=== PATIENT | male | born 1980 | race Caucasian/White ===

== ENCOUNTER 2023-02-07 14:02 | Emergency (ER) | payer OTHER, SELFPAY ==
[2023-02-07 14:16] VITALS: BP 124/79; PULSE 73; RESP 16; TEMP 36.8; O2SAT 99; BMI 29.4
--- NOTE | 2023-02-07 14:23 | PC.NURSE ---
bilat pupils equal and reactive, bilat hand grasp Strong and bilat leg strength strong and equal
[2023-02-07 14:55] VITALS: BP 143/87
--- NOTE | 2023-02-07 14:55 | ECG_ITS ---
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
[2023-02-07 14:57] VITALS: PULSE 64; RESP 14
[2023-02-07 14:58] VITALS: BP 148/82; PULSE 60; RESP 16
[2023-02-07 15:00] VITALS: BP 155/84
[2023-02-07 15:02] VITALS: BP 143/87; BP 148/87; BP 155/84
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
[2023-02-07] MEDS: METHYLPREDNISOLONE SOD SUCC PF 40 MG/ML VIAL IM (15:14)
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
== END 2023-02-07 16:36 | disposition home or self-care (01) ==
PROVIDERS: Emergency Provider Emergency Medicine; PCP Family Medicine
DX: R42 Dizziness and giddiness (principal)
CPT/HCPCS: 70450; 93005; 96372; 99285; J2920

== ENCOUNTER 2023-07-29 18:46 | Emergency (ER) | payer BC, SELFPAY ==
[2023-07-29 18:49] VITALS: BP 130/67; PULSE 75; TEMP 36.7; O2SAT 98; BMI 28.5
--- OUTSIDE RECORDS SUMMARY | 2023-07-29 18:55 | XMS_ITS | CCD ---
Author Organization [facility] Care Team Providers Care Automotive Engineer Name Role Phone Joy Buenrostro Unavailable SHASHI, DR NICOLE Acevedo Attending Unavailable SHASHI, DR NICOLE Acevedo Primary Care Unavailable DONR, DR NICOLE Acevedo Admitting Unavailable SHASHI, DR NICOLE Acevedo Admitting Unavailable SHASHI, DR NICOLE Acevedo Attending Unavailable SHASHI, DR NICOLE Acevedo Consulting Unavailable SHASHI, DR NICOLE Acevedo Primary Care Unavailable LEIGH ANDRES Consulting Unavailable VALENTÍN PARISI Attending Unavailable CATHI BENAVIDES Attending Unavailable SHASHI, NICOLE Acevedo Primary Care Unavailable Lawson PACRey Admitting Unavailable Lawson PACRey Attending Unavailable NICOLE DANIELLE Primary Care Unavailable DANDRE FARIAS Attending Unavailable Medications Current Medications Medication Drug Class(es) Dates Sig (Normalized) Sig (Original) [id number] 200 actuat albuterol 0.09 mg/actuat metered dose inhaler (2 sources) beta2-Adrenergic Agonist Start: 03-25-2021 take 2 puff(s) by inhalation four times daily as needed Albuterol Sulfate HFA 108 (90 Base) MCG/ACT 2 puffs Inhalation qid prn Mar, Active predniSONE 20 mg oral tablet (2 sources) Start: 03-25-2021 take 1 tablet by mouth every twelve hours predniSONE 20 MG 1 tablet Orally bid for 5 day(s) Mar, Active Problems Active Problems Problem Classification Problem Date Documented Da te Episodic/Chronic Conditions associated with dizziness or vertigo (4 sources) Dizziness and giddiness; Translations: [DIZZINESS AND GIDDINESS] Onset: 05-29-2022 Episodic Intracranial injury (1 source) Personal history of traumatic brain injury; Translations: [PERSONAL HX TRAUMATIC BRAIN INJURY] Onset: 06-01-2022 Episodic Past or Other Problems Problem Classification Problem Date Documented Da te Episodic/Chronic Immunizations and screening for infectious disease (2 sources) Contact with and (suspected) exposure to other viral communicable diseases Onset: 03-25-2021 Resolved: 03-25-2021 Episodic Viral infection (2 sources) COVID-19 Onset: 03-25-2021 Resolved: 03-25-2021 Results Test Name Value Interpretation Reference Range Facility Coding Summaryon 10-23-2022 Coding Summary HTMLBase 64 SeukniiyRIm4tCg+PGhlY WQ+FQ9DMYGxW51erIPvwC 5xE4OZVJyCXzheBSDGLCq DOfHbxuKrFC9pzVPiAFUg IC8+QT6rEMDlGxewpBWrv 3I7kIH2D36ssp8sLVuekY B5GPZmOjNdfxarr5ocyOt 6IDcuNmluOyBt SFVbjD75AXN1dF06Dk54o XTouKQaj4fiuCt5VyQdPL WjURS0uNboAMlcb6ZbXIX qI43hdHOtp5L7 KLJbrKgxgMJyCzVxdZA0i F9bREvuibrcf4jogdumKl t4nt36lLFgm3M4cHC7B7P pimO1MEPlzSRq RwjjwLLZqM9wwkxpu6tej nsxGzIaUGOhPCl0KLy1FZ IsnFtrHcOyHH25VHH0SUY rtyHvH9ByHMRe nQkvYdX2l3P0Dg9GV3BHY qyeK5MSJKXNGJeuuKJ+PC 46nn56Q3ToXehqStd2DSW eZJL0xCW5gP3z RGUzFPsgx3Y7pMD8H5Wsv cYzvw7sv7tgJGDwIMtvW4 3wrXNzc3C8PVLzrKQ6ZDR jrDbhMjJfsH28 Oyc+YDWwsPlss3TnUhmpn 6dhl2ahtSa2VirgQNGskg AueMgrHUO9x5XySf1vSOG tvPA4bGC9oZ5p QhLsMyR3ZTqbV957GlYak DOeMykjZ06dC9TpuNU+PH VnNgd1ZZExqVzsSW3vD6D hZGRpbmctbGVm eHtmSG7aCJPsbbytTDCqa X4aTTPxY9q7DeIaXbL9MZ dxJ1IdNTIbvayzVv90mN4 qJpCwSxB9VNxa J8CsjhB4ULHyzDGzZQjtE AL3V54mb4Y5XNMmGVDeMF T0wDR3vB7fhTzliwwowKR mdDsgdmVydGlj OFlqQCjiU980XDQcnNfpW kNvZGluZyBEYXRlOiAgMD cvMTcvMjAyMzwvdGQ+PHR aGBV6oSrhYKGv aXUnMBozWw3hkPthoXhgG U1aAKBdvuufVOKdlY7gZB AheMHncZqsRE0vJHThrkj qz203VdQqGMG1 LSTyyDKoQ9JpqS0eNbEeK QRbJQIsF3MkbIEnKGgdN3 59VBlqDfQ2TMEeerUaH7A sLWFsaWduOiB0 c9O3Ma5Ro2TqyfcsM9Gzy XAoQaDxYsfnZIl3T5QrIi wvdHI+YN02CZBiFN98HGk 2IOK5dDkgJEtl JKLhZ4YxwN2uZvWgEZLjE GRkOyc+PHRhYmxlIHdpZH RoPScxMDAlJyBzdHlsZT0 jFx7yXHIwDYGj nMhzsKFnHnTar6mvNLDqK VudLB9ghNyvE3BjyPW3KG Qxm5p9Mh82V07sD1SsoKJ +KCJpkEF7gJC5 kQ6wLiHnDpZ3YLdyC840A zFboYNmEowmb3uqd3pomI f3OfA5GAHzrqHznYbtVMP 9x8XkQw61N60c IHdpZHRoPSIxNSUiIHZhb Ksnrz5jnT1fDp6+PGNvbC J8hNH7pK8cArCvIeU7JLb zV397EeMacVDc Pseah0pcl7gfpBq0NkRnG UAkcqHetWslVWZ4t8UdWa 48F7LitXozp1ZmGxf8ql2 6nBAty7M4uQS6 S8GvEWNarhbapFZorGczX G1nPLAqyyilSIVfwZ8kJM ZnE5e7VaHdAyI0JLdhJ2P jjdK6LHZdmIUw RTKjiDSVyG8ywdhzi5tix dhsJmYlAFTpQZr0YOj3YY UqzWgbYiSiAOX4KzZ1HPN 3eTCvoK6zvDda puarmZ1lQbq+MRH6fBXvb FGFLV7lIbvylDM+PHRkIH O1wIbdJIfxJEUinB3oBHH sD8j3XlGqScE6 TPnvA3VpmaC5VKOejAZkL YUmmOYJlR4whrzko5bslo swMrRsFWElVUb3RUp3CDE saWduOiBsZWZ0 FiY9UKG2nIGruA5xfJfwr mkbkV0qEqv+QmlydGggRG C0PKz5P8OyGli5ZOPqbVp cZS2seCNrBGwk Ds9bbDlnyLgcMV3zNPRhl itvo808XbJce2moZXFysT YcVVhwJCL6B99bu5B6AAX pOMHeCQC2uDG6 jA0zzEenlceypYUphLcub rYvkHjqPQfmRTnaP997FW DbhPcrQdEwSEm7D5ZfYcg 2JGQjdTrmQV5z tGAiDNykPv9wyRwuuSxqX C5pKMYsrjnme124QfTek8 ocRRYxtFDqAMsgQGA9T96 um2J6XLWhQVTx EZA0xGC7yV2fqOwsvyvyh GVmdDsgdmVydGljYWwtYW xdY232KBWljSpfFlEdiKv 2C8VnDqa3UGGm lIypEH9blTUmATadIl3jp XkhpOvrTV5nMHFfyqsxt9 90BcSzi3miPFFsoEWtQHo aESQ0B99ro7V1 SSXfITUeHPA4kRH1tP1al GlnbjogbGVmdDsgdmVydG guLWadJBtpR854SBIfxZg nPlBhdGllbnQg ALllVBk7X0ExDwzdrON+P U14OAOhBE87uWYevMVvt8 xluIa5MxUzGCIzAOX3iKb jJXmyv9NkKPJf G67seJNio7C3DVUdoSfbd QZqHwHepTK4gO1oYFahuz nue9jhbmzgZzjqf9ojkj8 3dP91L51sTZny ZHRoPSIzMCUiIHZhbGlnb r0ugQ4tMh6+NAZuxBK3eX R2qN8oNPXdCwR1HInmX12 9InRvcCIvPjxj g2oqn6reiQm7YqJ7EFBjq hKvwRgzJQH4f0AaTn69A2 9sIHdpZHRoPSIyMCUiIHZ ybQrpgn1baD4m Ii8+KIYqmXH3iTD9nJ8eX ePxDoB8ZPnhN229QtOtmU PaDecrS28eM1FjiOI+PHR mLxg2LVUcaBhw WT9tbRKyWUziQm5xTQF7W nUnYaZvVMnmK9JsVOXuoo benqucpTC7KBJnDFXuzB5 5Ef1srGphRIRm nFOCyP8fkaxri6nontxuW uLuKLHrJOj5EBs3MOLkrT bmMnXoTHE3QiY5ESE4xPP hwC0htQekfhzh sX0gV5NhPNMiirpfRh76l T5bVoPtUdU7MJoyHce+U0 jASBrXZMEFG2SOHyRlYTZ PBBH9A2NrNgx6 JTRhlKcaAY6msFXuKGwzB g8fuIhtcFezEE6cBVSvzk hnUKZzqJ3qDFBvkBRsxKe hCR9nTMXztfnl s916BbMjLRI2DBOrkFFrU 3OyzS8tIwZuZOKqHFZgR6 IiaHDhXGtiB739VNyeCkP 1AFChnhRkB8Pj FVTqqLhdTaQ2d6V7Gp6rJ Q0fKq9nZIrbJR36AS61iC Fxt1W2nTQ3L9MbQLXtfwa oglujyQW4PUGy RWAaoF38gXEbQMsbDb7oa 2Y4i688HAWmDVKtjW49Ej 1scAkoGLUopKUYwE9lzxo ix9eruqgfTjNa LVVyQOu9KXs9LVYqrUlaU dRbXVW7EsA0MQC5cDImdZ 3prNqixwracG0nPzv+NDA wWMEuwxE6B7Va Gjp7RKIuuEprGL0viWUdD CjjKp2bgUatrNhsDV4cPV TpybrrZHKokJ2eQLPupIL ijXfaTH9rIGQq qmqty593QhTcZNT2KJXti VUqG7RpcN6tNpXvTZFnNE QzJ7TftUIkHBawK030UZn eKsG0IDCicjGg H0LuWRNqeWbcQlS3j4H3C g3NGLzUTO22ZB48jVVox5 Y3kCO1D2ZxLVZopjpypjv dqOB9FZZeGFZl oR36mEYhWKorOg1sj3K6g 284ENVhIBZyqP14Rm3hgZ kfESJxgWIFfI6knpbro2p vcjogIzAwMDAw ZTv2JKz5KRQgaHhwZcByR IY5JwR2DGX1uUZxhH8qnS swinbcwB3lNvy+O1E8E1K kPjwvdHI+PC90 DZDyBY51sNVmePKef4vol Fy1MeYrTFPeGEY7tLewGA snd3FgSQUvJ91bpZSez7S 6IGNvbGxhcHNl EeHwkXU8gV6pDCwtbsyhv 7jihnnkQwabk8vwtt56nL 99V27oMTxeMRHyZYDnDMO qDLFarRmpex1j hG6mOo5+HWRkeUU2oWX6r S0tXzRoRyL2YDjbZ868Fq QnpWOkYrffr8zpz5fuhWp 9IjIwJSIgdmFs yEejHWG8t8PdHk13O07dC HdpZHRoPSIyMCUiIHZhbG haoj9jpO6oHn2+GP5ae4w ghb47jC87vFI+ KZKrYSR8kWvmTWmhJSUhp P2dNLbuWlI6EGMhZqBkkC 92nLEkYLieWt2oxPmgbFw oOB1rUCGklnez h066DvZbr6sjWAOxlIPfM VzsOCP1M73dz7I1YUOrAL YfUST9oBZ2xA7jrCdhbcw gbGVmdDsgdmVy mKncGTkoLOhqE352NXBui UobYqEqeGTeB7mzqhGADX 1lOjwvdGQ+YVAtCXB4wYp cLAgvMMQwkT5d BQQiF6x7RfRgVgQ5GMggF 4BnvbM2EUHkbNPuNSYkiL LXlY3kzbcnq5tuvqzoNgB rXHBdXRm7CFu8 AIDvuNtyJqVyIMX0RfP9V FN8zSRycT8cpCtgrfwzzI 9wOyc+RklOOjwvdGQ+PHR dLUW3hGtaNPhn GWNsdE4bMXUuB8k3LwEjL kU2CHazC7KkebY6OHVqfN WxXKDhfRVWlR4eaplne9p vcjogIzAwMDAw UNe3MNq1WTScfJxnMrNmK OS2YbU2PHO1jBWzsX3ziN guwjtlrT1qAax+TVJOOjw vdGQ+PHRkIHN0 zWsjFLhnBIDjpR6qEIFdU 8o1GmBbGsF0XLxoS6Kbfu A7YUVqaVPdGQHqzHVAaQ6 rgacco9tdthdf LiBkCYGrGZb7SQa4PVFet OuuZbDgXGV6QtO4VRU3nT ClmW8leQgposiczQ5jTjj +DAQ6SYJ8RY52 TC72U9McBeozaMDxfIC+P HRhYmxlIHdpZHRoPScxMD SuHvUdoWrcKW0jOy4bXXI yLWNvbGxhcHNl OiB (more content not included)... [facility] .QC SARS-CoV-2 (COVID-19)/Fl u/RSV (GeneXpert)on 10-08-2022 Internal Control Pass [facility] Comment on above: Order Comment: Order ed by Discern. [[id number]] Performed By: #### [id number] #### [facility] (DEFAULT) [address] [place] [address] COVID/Flu/RSV (GeneXpert)on 10-08-2022 Flu A (GXpert COVFLURSV) Negative Normal Negative [facility] Comment on above: Performed By: #### [id number] #### [facility] (DEFAULT) [address] [place] [address] Flu B (GXpert COVFLURSV) Negative Normal Negative [facility] Comment on above: Performed By: #### 4 [id number] #### [facility] (DEFAULT) [address] [place] [address] RSV (GXpert COVFLURSV) Negative Normal Negative [facility] Comment on above: Performed By: #### [id number], [id number] #### [facility] (DEFAULT) [address] [place] [address] SARS-CoV-2 (COVID-19) RNA CHAPARRO+probe Ql (Unsp spec) Negative Normal Negative [facility] Comment on above: Result Comment: Perf ormed by PCR methodology. Performed By: #### 4 [id number], [id number] #### [facility] (DEFAULT) [address] [place] [address] ED Clinical Summaryon 2022 ED Clinical Summary [facility] ? Urgent Care [address] [place] [address] Clinical Summary PERSON INFORMATION Name: EDISON IQBAL Age: 42 Years Sex: MALE : 1980 MRN: Acct#: Visit Reason: Malaise; Throat pain - Adult; UC - Sore Throat; Cough; CHILLS Arrival: 10/08/2022 12:01:05 Discharge: 10/08/2022 15:05:00 LOS: 000 03:04 Check In: 10/08/2022 12:01:05 Checkout: 10/08/2022 15:05:00 [facility] [id number] PCP: NICOLE DANIELLE PROVIDER INFORMATION Provider Role Assigned Unassigned Arielle RN, Chelsea Coreas ED Nurse 10/08/2022 13:02:20 Rey Munoz ED PA 10/08/2022 13:05:24 VITALS INFORMATION Vital Sign Triage Latest Temperature Tympanic Temperature Temporal Artery Pulse Rate O2 Sat 99 % 98 % Respiratory Rate Blood Pressure /78 mmHg /78 mmHg MEDICAL INFORMATION Medications Given: Medication Dose Route dexAMETHasone 10 mg PO Allergy Information: No known allergies PHYSICIAN DOCUMENTATION DISCHARGE INFORMATION: Discharge Disposition: Home Discharge Location: Home PATIENT EDUCATION INFORMATION Instructions: Strep Throat, Adult Follow-Up: With: Address: When: NICOLE DANIELLE [address] [place], [place] [address]herson [place], [place] [phone] Business (1) Within 2 to 4 days Comments: Your rapid strep test was POSITIVE for Bacterial Strep. Begin amoxicillin 500 mg one pill every 8 hours for the next 10 days, do not stop this early. If diarrhea or rash contact urgent care. This infection requires complete course of antibiotics. - You were given a dose of oral Decadron which is a steroid to help with the swelling and pain in you throat which will help for 3 days. - Take Tylenol 500 mg every 4-6 hours not to exceed 3000mg in 24 hours. - In addition, you may take Ibuprofen 800mg every 8 hours. - Consider additional use of Chloraseptic spray, salt water gargle, cool liquids. Please return for medical care if fever over 101.5, difficulty swallowing, swelling on only one side of your neck or back of throat, muffled voice, drooling, progressive symptoms, chest pain, shortness breath, abdominal pain, nausea, vomiting, diarrhea. DIAGNOSIS: Acute streptococcal pharyngitis Patient Understands: Yes - Patient/family/caregi deven verbalizes understanding of instructions given Comment: Normal [facility] ED Patient Summaryon 023 ED Patient Summary [facility] ? Urgent Care [address] [place] [address] PATIENT DISCHARGE INSTRUCTIONS Patient Information Name: EDISON IQBAL Age: 42 Years Date of : 1980 [facility]: [id number] Reason For Visit: Malaise; Throat pain - Adult; UC - Sore Throat; Cough; CHILLS Arrival Time: 10/08/2022 12:01:05 Primary Care Physician: NICOLE DANIELLE Attending Physician: Rey Munoz Comment: Patient Education With: Address: When: NICOLE DANIELLE [address] [place] [phone] Business (1) Within 2 to 4 days Comments: Your rapid strep test was POSITIVE for Bacterial Strep. Begin amoxicillin 500 mg one pill every 8 hours for the next 10 days, do not stop this early. If diarrhea or rash contact urgent care. This infection requires complete course of antibiotics. - You were given a dose of oral Decadron which is a steroid to help with the swelling and pain in you throat which will help for 3 days. - Take Tylenol 500 mg every 4-6 hours not to exceed 3000mg in 24 hours. - In addition, you may take Ibuprofen 800mg every 8 hours. - Consider additional use of Chloraseptic spray, salt water gargle, cool liquids. Please return for medical care if fever over 101.5, difficulty swallowing, swelling on only one side of your neck or back of throat, muffled voice, drooling, progressive symptoms, chest pain, shortness breath, abdominal pain, nausea, vomiting, diarrhea. Strep Throat, Adult Strep throat is an infection in the throat that is caused by bacteria. It is common during the cold months of the year. It mostly affects children who are 5?15 years old. However, people of all ages can get it at any time of the year. This infection spreads from person to person (is contagious) through coughing, sneezing, or having close contact. Your health care provider may use other names to describe the infection. When strep throat affects the tonsils, it is called tonsillitis. When it affects the back of the throat, it is called pharyngitis. What are the causes? This condition is caused by the Streptococcus pyogenes bacteria. What increases the risk? You are more likely to develop this condition if: ? You care for school-age children, or are around school-age children. Children are more likely to get strep throat and may spread it to others. ? You spend time in crowded places where the infection can spread easily. ? You have close contact with someone who has strep throat. What are the signs or symptoms? Symptoms of this condition include: ? Fever or chills. ? Redness, swelling, or pain in the tonsils or throat. ? Pain or difficulty when swallowing. ? White or yellow spots on the tonsils or throat. ? Tender glands in the neck and under the jaw. ? Bad smelling breath. ? Red rash all over the body. This is rare. How is this diagnosed? This condition is diagnosed by tests that check for the presence and the amount of bacteria that cause strep throat. They are: ? Rapid strep test. Your throat is swabbed and checked for the presence of bacteria. Results are usually ready in minutes. ? Throat culture test. Your throat is swabbed. The sample is placed in a cup that allows infections to grow. Results are usually ready in 1 or 2 days. How is this treated? This condition may be treated with: ? Medicines that kill germs (antibiotics). ? Medicines that relieve pain or fever. These include: ? Ibuprofen or acetaminophen. ? Aspirin, only for people who are over the age of 18. ? Throat lozenges. ? Throat sprays. Follow these instructions at home: Medicines ? Take wuag-lrt-wtmnsml and prescription medicines only as told by your health care provider. ? Take your antibiotic medicine as told by your health care provider. Do not stop taking the antibiotic even if you start to feel better. Eating and drinking ? If you have trouble swallowing, try eating soft foods until your sore throat feels better. ? Drink enough fluid to keep your urine pale yellow. ? To help relieve pain, you may have: ? Warm fluids, such as soup and tea. ? Cold fluids, such as frozen desserts or popsicles. General instructions ? Gargle with a salt-water mixture 3?4 times a day or as needed. To make a salt-water mixture, completely dissolve ??1 tsp (3?6 g) of salt in 1 cup (237 mL) of warm water. ? Get plenty of rest. ? Stay home from work or school until you have been taking antibiotics for 24 hours. ? Do not use any products that contain nicotine or tobacco. These products include cigarettes, chewing tobacco, and vaping devices, such as e-cigarettes. If you need help quitting, ask your health care provider. ? It is up to you to get your test results. Ask your health care provider, or the department that is doing the test, when your results will be re (more content not included)... Normal [facility] Strep Aon 10-08-2022 Strep procedure control Pass Normal [facility] l Comment on above: Performed By: #### 4 [id number], [id number] #### [facility] (DEFAULT) [address] [place] [address] Streptococcus A Positive Normal Negative [facility] Comment on above: Performed By: #### 4 [id number], [id number] #### [facility] (DEFAULT) [address] [place] [address] Urgent Care Note- Provideron 10-08-2022 Urgent Care Note- Provider Patient: EDISON IQBAL Age: 42 years Sex: MALE : 1980 Associated Diagnoses: Acute streptococcal pharyngitis Author: Rey Munoz Basic Information Time seen: Date & time 10/08/2022 14:38:00. History source: Patient. Arrival mode: Walking. History limitation: None. Additional information: Chief Complaint from Nursing Triage Note : Chief Complaint 10/08/2022 13:07 EDT Chief Complaint camping in area-felt sudden chills and malaise last night, pos fever. took Tyl 11am today. Reports scratchy sore throar and new cough, non productive in nature. Denies contact w ill persons. No covid series, denies covid contact. No med hx or daily meds. . Onset sudden onset around 4:00 yesterday of chills, malaise, hot and cold with a sore throat. Patient states now every time he swallows his throat hurts. He feels a very minimal cough but is more clearing type sore throat cough. He does not have any wheezing or shortness of breath. He has not had any known exposure or illnesses. He has been at the [facility] camping. He supposed to return to work tomorrow. Trying ibuprofen and Tylenol which has seemed to help his sore throat and chills. He does feel though he did temperature but did not take it due to being on vacation Review of Systems Constitutional symptoms: Fever, chills, decreased activity, No sweats, Skin symptoms: No rash, no breakdown, no lesion. Eye symptoms: No recent vision problems, no blurred vision. ENMT symptoms: Sore throat, no ear pain, no nasal congestion, no sinus pain. Respiratory symptoms: No shortness of breath, no cough. Cardiovascular symptoms: No chest pain, no palpitations. Gastrointestinal symptoms: No abdominal pain, no nausea, no vomiting, no diarrhea. Genitourinary symptoms: No dysuria, no hematuria. Musculoskeletal symptoms: Muscle pain, No back pain, Neurologic symptoms: No headache, no dizziness, no altered level of consciousness, no numbness, no tingling, no weakness. Psychiatric symptoms: No anxiety, no depression. Health Status Allergies: Allergic Reactions (Selected) No known allergies. Past Medical/ Family/ Social History Medical history: No active or resolved past medical history items have been selected or recorded.. Surgical history: No active procedure history items have been selected or recorded.. Family history: No family history items have been selected or recorded.. Social history: Social & Psychosocial Habits Alcohol 10/08/2022 Alcohol Use: Current Type: Beer, Liquor Frequency: 1-2 times per week Comment: Social drinker, drank last night while camping - 10/08/2022 13:10 - Arielle DE JESUS, Chelsea Coreas Substance Abuse 10/08/2022 Substance use: Never Tobacco 10/08/2022 Smoking tobacco use: Never tobacco user Electronic Cigarette/Vaping 10/08/2022 Electronic Cigarette Use: Never . Problem list: No qualifying data available . Physical Examination Vital Signs Vital Signs 10/08/2022 13:07 EDT Temperature Tympanic 37.1 DegC Peripheral Pulse Rate 70 bpm Respiratory Rate 16 br/min Systolic Blood Pressure 138 mmHg Diastolic Blood Pressure 78 mmHg SpO2 99 % Oxygen Therapy Room air BP Method Automatic . Measurements 10/08/2022 13:07 EDT Height 172 cm Weight 92.99 kg Body Mass Index Measured 31.43 kg/m2 BSA Measured 2.11 m2 . General: Alert, appropriate for age, no acute distress. Skin: Warm, dry, pink. Head: Normocephalic, atraumatic. Neck: Supple, trachea midline, no meningeal signs.. Eye: Pupils are equal, round and reactive to light, extraocular movements are intact, normal conjunctiva. Ears, nose, mouth and throat: Tympanic membranes clear, oral mucosa moist, Sinus, Nose: no discharge, no swelling, Throat: Moderate, erythema, with exudate. Cardiovascular: Regular rate and rhythm, No murmur. Respiratory: Lungs are clear to auscultation, respirations are non-labored. Chest wall: No tenderness. Back: Nontender, Normal range of motion. Musculoskeletal: Normal ROM, normal strength, no tenderness. Gastrointestinal: Soft, Nontender, Non distended. Neurological: Alert and oriented to person, place, time, and situation, No focal neurological deficit observed. Lymphatics: No lymphadenopathy. Psychiatric: Cooperative. Medical Decision Making Rationale: Strep pharyngitis. Begin amoxicillin. Oral dexamethasone given here today. Quarantine. Off work for note for tomorrow. Return if worse. Orders Launch Orders Pharmacy: dexAMETHasone (Order): 10 mg, PO, Once. Results review: Lab results : [facility] 10/08/2022 14:07 EDT Streptococcus A Positive . Impression and Plan Diagnosis Acute streptococcal pharyngitis ([id number] J02.0, Discharge, Medical) Plan Condition: Stable. Disposition: Discharged: Time 10/08/2022 14:39:00, to home. Prescriptions: Launch prescriptions Pharmacy: amoxicillin 500 mg oral tablet (Prescribe): 500 mg = 1 tab(s), PO, TID, for 10 day(s), 30 tab(s), 0 Refill(s). (more content not included)... Normal [facility] Urgent Care [place] 023 Urgent Care Record [facility] ? Urgent Care [address] [place] [address] PATIENT DISCHARGE INSTRUCTIONS Patient Information Name: EDISON IQBAL Age: 42 Years Date of : 1980 [facility]: [id number] Reason For Visit: Malaise; Throat pain - Adult; UC - Sore Throat; Cough; CHILLS Arrival Time: 10/08/2022 12:01:05 Primary Care Physician: NICOLE DANIELLE Attending Physician: Rey Munoz Comment: Visit Diagnosis: Diagnoses This Visit Acute streptococcal pharyngitis (J02.0) Cough ([id number]) Malaise ([id number]) Throat pain - Adult ([id number]) UC - Sore Throat ([id number]) If you received any narcotics, sedation, or any other medication that causes drowsiness for the next 24 hours, unless otherwise directed: ? Do not drive a car. ? Do not operate machinery such as power tools, lawn mowers, drills, sewing machines, or stoves ? Avoid alcoholic beverages and drugs for allergies, nerves, or sleep ? Do not make important personal or business decisions or sign any legal documents With: Address: When: NICOLE DANIELLE [address] [place], [place] [address]herson cristy [place], [place] [id number] Business (1) Within 2 to 4 days Comments: Your rapid strep test was POSITIVE for Bacterial Strep. Begin amoxicillin 500 mg one pill every 8 hours for the next 10 days, do not stop this early. If diarrhea or rash contact urgent care. This infection requires complete course of antibiotics. - You were given a dose of oral Decadron which is a steroid to help with the swelling and pain in you throat which will help for 3 days. - Take Tylenol 500 mg every 4-6 hours not to exceed 3000mg in 24 hours. - In addition, you may take Ibuprofen 800mg every 8 hours. - Consider additional use of Chloraseptic spray, salt water gargle, cool liquids. Please return for medical care if fever over 101.5, difficulty swallowing, swelling on only one side of your neck or back of throat, muffled voice, drooling, progressive symptoms, chest pain, shortness breath, abdominal pain, nausea, vomiting, diarrhea. Medication Information: The exam and treatment you received today in the [facility] were for an urgent problem and are not intended as complete care. It is important for you to follow up with a doctor, nurse practitioner, or physician?s cafe assistant for ongoing care. If your symptoms become worse or you do not improve as expected and you are unable to reach your usual health care provider, you should return to the Emergency Department, we are available 24 hours a day. For those patients who have received Radiology results, the interpretation of your X-ray as given to you by our Urgent Care physician is only a preliminary report. The Radiologist will review your films and if there is a change in the diagnosis you will be notified by phone. Please make sure you have provided a working phone number so we can reach you if necessary. In the event that you had a lab culture while you were a patient in the Urgent Care, you will be notified by phone if there is a need to change your antibiotic. Please make sure you have provided a working phone number so we can reach you if necessary. [facility] has provided you with a complete list of medications post discharge. Please inform your can capper/provider of your visit and for further instruction on these medications. Any specific questions regarding your chronic medications and dosages should be discussed with your primary care physician(s) and/or pharmacist. New Medications [facility], [address], [place] [id number], [phone] amoxicillin (amoxicillin 500 mg oral tablet) 1 tab(s) Oral 3 times a day for 10 Days. Refills: 0. Visit Information Allergies: Substance Reaction Symptoms Type Comments No known allergies Drug Vital Signs: Vitals and Measurements this Visit (last charted value for your 10/08/2022 visit) Vital Signs This Visit Temperature Tympanic: 37.1 DegC Peripheral Pulse Rate: 70 bpm Respiratory Rate: 16 br/min Systolic Blood Pressure: 138 mmHg Diastolic Blood Pressure: 78 mmHg SpO2: 99 % Oxygen Therapy: Room air Blood Pressure Method: Automatic Measurements This Visit Height/Length Measured: 172 cm Weight Measured: 92.99 kg Body Mass Index: 31.43 kg/m2 BSA Measured: 2.11 m2 Problems List: Problem Onset Comments No Problems found Patient Education Strep Throat, Adult Strep throat is an infection in the throat that is caused by bacteria. It is common during the cold months of the year. It mostly affects children who are 5?15 years old. However, people of all ages can get it at any time of the year. This infection spreads from person to person (is contagious) through coughing, sneezing, or having close contact. Your health care provider may use other names to (more content not included)... Normal [facility] EXAMINATION: MRI BRAIN [facility] HISTORY: Dizziness and giddiness Traumatic brain disorder, acute vertigo. COMPARISON: Head CT 03/15/2021 TECHNIQUE: Multiplanar, multisequence MRI images of the brain were obtained without and with contrast. FINDINGS: Negative for acute infarct. Small encephalomalacia in the bilateral anterior frontal lobes. No pathologic enhancement. Ventricles and sulci normal in size. No hydrocephalus. There is no midline shift, mass effect, or abnormal extraaxial fluid collections. Pituitary gland is not abnormally enlarged. Possible tiny 3 mm nodule in the left side of the pituitary demonstrating decreased enhancement. There is no evidence for a Chiari I malformation. The orbital apices are clear. The flow voids of the [place] are visualized, implying that the vessels are patent. IMPRESSION: 1. Negative for acute infarct or acute intracranial process. 2. 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 No hydrocephalus or mass effect. 3. Possible tiny 3 mm nodule in the left side of the pituitary, which could be a Rathke's cleft cyst versus a tiny pituitary microadenoma. Overall size of the pituitary gland is normal. Electronically authenticated by: LEIGH ANDRES Date: 2022-05-30 13:13 Normal [facility] COVID Quick Testingon 2020 Result Positive [facility] Other Vital Signs Date Time Vital Sign Value Performing Clinician Facility 03-25-2021 13:00-0500 Body height 177.8 cm Joy Buenrostro Other [facility] Other 03-25-2021 13:00-0500 Body mass index (BMI) [Ratio] 28.69 kg/m2 Joy Buenrostro Other [facility] Other 03-25-2021 13:00-0500 Body temperature 98.3 [degF] Joy Buenrostro Other [facility] Other 03-25-2021 13:00-0500 Body weight 90.72 kg Joy Buenrostro Other [facility] Other 03-25-2021 13:00-0500 SaO2% (BldA) [Mass fraction] 95 % Joy Buenrostro Other [facility] Other Encounters Encounter Date Encounter Type Care Provider Facility Start: 06-14-2023 End: 06-15-2023 ambulatory NICOLE DANIELLE Facility:[facility] Start: 04-10-2023 End: 04-10-2023 ambulatory VALENTÍN PARIIS Not Available Start: 03-05-2023 End: 03-05-2023 ambulatory CATHI BENAVIDES Not Available Start: 10-08-2022 End: 10-08-2022 ambulatory NICOLE DANIELLE Facility:[facility] Start: 05-29-2022 End: 02-21-[address] NICOLE DANIELLE Facility:[facility] Start: 05-26-2022 End: 05-27-[address] NICOLE DANIELLE Facility:[facility] Start: 03-25-2021 (URG) Urgent Care Visit Joy [facility]an [facility] Start: 03-25-2021 End: 03-25-2021 ambulatory Joy Buenrostro Other [facility] Other Payers Date Payer Category Payer Unknown [id number] [id number] 1982 Unknown [id number] 1982 Unknown [id number] 1982 Unknown [id number] 1982 Unknown [id number] [id number] 1982 Unknown [id number] [id number] 1959 Unknown [id number] Social History Date Type Detail Facility Unknown if ever smoked [facility] Other Sex Assigned At Sex Assigned At Bir th [facility] Other Clinical Note 10-08-2022 Note Date & Type Note Facility 10-08-2022 Note Patient Education Ma terials Follows:Disease Strep Throat, Adult Strep throat is an infection in the throat that is caused by bacteria. It is common during the cold months of the year. It mostly affects children who are 5?15 years old. However, people of all ages can get it at any time of the year. This infection spreads from person to person (is contagious) through coughing, sneezing, or having close contact. Your health care provider may use other names to describe the infection. When strep throat affects the tonsils, it is called tonsillitis. When it affects the back of the throat, it is called pharyngitis. What are the causes? This condition is caused by the Streptococcus pyogenes bacteria. What increases the risk? You are more likely to develop this condition if: ? You care for school-age children, or are around school-age children. Children are more likely to get strep throat and may spread it to others. ? You spend time in crowded places where the infection can spread easily. ? You have close contact with someone who has strep throat. What are the signs or symptoms? Symptoms of this condition include: ? Fever or chills. ? Redness, swelling, or pain in the tonsils or throat. ? Pain or difficulty when swallowing. ? White or yellow spots on the tonsils or throat. ? Tender glands in the neck and under the jaw. ? Bad smelling breath. ? Red rash all over the body. This is rare. How is this diagnosed? This condition is diagnosed by tests that check for the presence and the amount of bacteria that cause strep throat. They are: ? Rapid strep test. Your throat is swabbed and checked for the presence of bacteria. Results are usually ready in minutes. ? Throat culture test. Your throat is swabbed. The sample is placed in a cup that allows infections to grow. Results are usually ready in 1 or 2 days. How is this treated? This condition may be treated with: ? Medicines that kill germs (antibiotics). ? Medicines that relieve pain or fever. These include: ? Ibuprofen or acetaminophen. ? Aspirin, only for people who are over the age of 18. ? Throat lozenges. ? Throat sprays. Follow these instructions at home: Medicines ? Take njiw-[id number] and prescription medicines only as told by your health care provider. ? Take your antibiotic medicine as told by your health care provider. Do not stop taking the antibiotic even if you start to feel better. Eating and drinking ? If you have trouble swallowing, try eating soft foods until your sore throat feels better. ? Drink enough fluid to keep your urine pale yellow. ? To help relieve pain, you may have: ? Warm fluids, such as soup and tea. ? Cold fluids, such as frozen desserts or popsicles. General instructions ? Gargle with a salt-water mixture 3?4 times a day or as needed. To make a salt-water mixture, completely dissolve ??1 tsp (3?6 g) of salt in 1 cup (237 mL) of warm water. ? Get plenty of rest. ? Stay home from work or school until you have been taking antibiotics for 24 hours. ? Do not use any products that contain nicotine or tobacco. These products include cigarettes, chewing tobacco, and vaping devices, such as e-cigarettes. If you need help quitting, ask your health care provider. ? It is up to you to get your test results. Ask your health care provider, or the department that is doing the test, when your results will be ready. ? Keep all follow-up visits. This is important. How is this prevented? ? Do not share food, drinking cups, or personal items that could cause the infection to spread to other people. ? Wash your hands often with soap and water for at least 20 seconds. If soap and water are not available, use hand transportation refrigeration technician. Make sure that all people in your house wash their hands well. ? Have family members tested if they have a sore throat or fever. They may need an antibiotic if they have strep throat. Contact a health care provider if: ? You have swelling in your neck that keeps getting bigger. ? You develop a rash, cough, or earache. ? You cough up a thick mucus that is green, yellow-brown, or bloody. ? You have pain or discomfort that does not get better with medicine. ? Your symptoms seem to be getting worse. ? You have a fever. Get help right away if: ? You have new symptoms, such as vomiting, severe headache, stiff or painful neck, chest pain, or shortness of breath. ? You have severe throat pain, drooling, or changes in your voice. ? You have swelling of the neck, or the skin on the neck becomes red and tender. ? You have signs of dehydration, such as tiredness (fatigue), dry mouth, and decreased urination. ? You become increasingly sleepy, or you cannot wake up completely. ? Your joints become red or painful. These symptoms may represent a serious problem that is a (more content not included)... [facility] Evaluation note 12-17-2021 Note Date & Type Note Facility 03-25-2021 Evaluation note Encounter Date Diagnosis Assessment Notes Mar, Contact with and (suspected) exposure to other viral communicable diseases (ICD-10 - Z20.828) Mar, COVID-19 (ICD-10 - U07.1) Drink plenty fluids, get plenty of rest. You must self isolate for 10 days after the onset of your symptoms. Follow-up with your family physician if no improvement in 2 to 3 days. Take the prednisone as prescribed until gone. Use the albuterol inhaler as prescribed as needed for cough or shortness of breath Mar, Other Additional time spent conducting pre-visit phone call, screening for symptoms, instructions on social distancing, application and removal of PPE, and cleaning of examination room, equipment and supplies was preformed. Patient education given for testing methodology and results. Patient care instructions given in writting by [facility] At Home document. [facility] Other Summary Purpose Family History No Family History Records FoundNo Family History Records FoundNo Family History Records Found Advance Directives No Advanced Directives Records FoundNo Advanced Directives Records FoundNo Advanced Directives Records Found Additional Source Comments REASON FOR VISIT (unrecogniz ed section and content) #13 SILVER CALORADO, COUGH, SORE THROAT, H/A, BODYACHE, SOB X 3 DAYS#13 SILVER [place], COUGH, SORE THROAT, H/A, BODYACHE, SOB X 3 DAYS (unrecognized sect ion and content) No Status Records FoundNo Status Records FoundNo Status Records Found INFORMATION SOURCE (unrecogn ized section and content) DATE CREATED AUTHOR [facility]15/2022 [facility] DATE CREATED AUTHOR AUTHOR[facility]S OR[facility]IZ ATION [facility] DATE CREATED AUTHOR AUTHOR'S ORGANIZ ATION 06/15/2023 [facility] FOR RECORDS PERTAINING TO PATIENTS WHO ARE OR HAVE BEEN ENROLLED IN A CHEMICAL DEPENDENCY/SUBSTANCEABUSE PROGRAM, SOME INFORMATION MAY BE OMITTED. This clinical summary was aggregated from multiple sources. Caution should be exercised in using it in the provision of clinical care. This summary normalizes information from multiple sources, and as a consequence, information in this document may materially change the coding, format and clinical context of patient data. In addition, data may be omitted in some cases. CLINICAL DECISIONS SHOULD BE BASED ON THE PRIMARY CLINICAL RECORDS. [facility] [facility]. provides no warranty or guarantee of the accuracy or completeness of information in this document.
--- NOTE | 2023-07-29 19:06 | PC.NURSE ---
Had steri strip in place. Area approximated, no bleeding.
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
[2023-07-29] MEDS: BACITRACIN 0.9 GM PACKET 1 PACKET TOPICAL (20:07)
[2023-07-29] MEDS: LIDOCAINE HCL 1%-EPINEPHRINE 1:100,000 20 ML MDV INJ (20:07)
[2023-07-29 20:13] VITALS: BP 112/67; PULSE 70; O2SAT 97
== END 2023-07-29 20:15 | disposition home or self-care (01) ==
PROVIDERS: Emergency Provider Emergency Medicine; PCP Family Medicine
DX: S01.81XA Laceration without foreign body of other part of head, initial encounter (principal); S09.8XXA Other specified injuries of head, initial encounter; W22.8XXA Striking against or struck by other objects, initial encounter
CPT/HCPCS: 12011; 99282

== ENCOUNTER 2024-04-22 17:15 | Outpatient (OUT) | payer BC, SELFPAY ==
--- OUTSIDE RECORDS SUMMARY | 2024-04-22 17:19 | XMS_ITS | CCD ---
Author Organization [facility] Care Team Providers Care Power Plant Manager Name Role Phone Joy Buenrostro Unavailable SHASHI, DR LUCIANO Acevedo Attending Unavailable NADERER, DR LUCIANO Acevedo Primary Care Unavailable SHASHI, DR LUCIANO Acevedo Admitting Unavailable NATHANERER, DR LUCIANO Acevedo Admitting Unavailable SHASHI, DR LUCIANO Acevedo Attending Unavailable DONR, DR LUCIANO Acevedo Consulting Unavailable NADERER, DR LUCIANO Acevedo Primary Care Unavailable LEIGH ANDRES Consulting Unavailable SHASHI, LUCIANO Acevedo Primary Care Unavailable Rey Munoz Admitting Unavailable Lawson NICHOLAS, Rey Garcia Attending Unavailable SHASHI, LUCIANO Acevedo Primary Care Unavailable DANDRE FARIAS Attending Unavailable Luciano Danielle MD Primary Care Provider VALENTÍN PARISI Attending Unavailable CATHI GOMEZ Attending Unavailable CATHI GOMEZ Attending Unavailable CATHI GOMEZ Attending Unavailable Medications Current Medications Medication Drug Class(es) Dates Sig (Normalized) Sig (Original) [id number] 200 actuat albuterol 0.09 mg/actuat metered dose inhaler (2 sources) beta2-Adrenergic Agonist Start: 03-25-2021 take 2 puff(s) by inhalation four times daily as needed Albuterol Sulfate HFA 108 (90 Base) MCG/ACT 2 puffs Inhalation qid prn Mar, Active ibuprofen 800 mg oral tablet (3 sources) Nonsteroidal Anti-inflammatory Drug Start: 10-03-2023 End: 03-31-2024 take 1 tablet by mouth in the morning, then take 1 tablet by mouth in the evening, then take 1 tablet by mouth at bedtime ibuprofen 800 MG tablet Indications: Lateral epicondylitis of left elbow Take 1 tablet (800 mg) by mouth in the morning and 1 tablet (800 mg) in the evening and 1 tablet (800 mg) before bedtime. 90 tablet 2 10/03/2023 03/31/2024 Active predniSONE 20 mg oral tablet (2 sources) Start: 03-25-2021 take 1 tablet by mouth every twelve hours predniSONE 20 MG 1 tablet Orally bid for 5 day(s) Mar, Active Completed/Discontinued Medications Medication Drug Class(es) Dates Sig (Normalized) Sig (Original) bupivacaine hydrochloride 5 mg/ml injectable solution (4 sources) Amide Local Anesthetic Start: 02-06-2024 End: 02-06-2024 bupivacaine (Marcaine) 0.5 % injection 0.5 mL Start: 02-06-2024 End: 02-06-2024 0.5 mL, Once PRN Procedure, Starting on Sun02/06/24 at 0813, For 1 dose 1 ml methylPREDNISolone acetate 40 mg/ml injection (4 sources) Corticosteroid Start: 02-06-2024 End: 02-06-2024 methylPREDNISolone acetate (DEPO-Medrol) injection 40 mg Start: 02-06-2024 End: 02-06-2024 40 mg, Intra-articular, Once PRN Procedure, Starting on Sun02/06/24 at 0813, For 1 dose Problems Active Problems Problem Classification Problem Date Documented Date Episodic/Chronic Conditions associated with dizziness or vertigo (4 sources) Dizziness and giddiness; Translations: [DIZZINESS AND GIDDINESS] Onset: 05-29-2022 Episodic Intracranial injury (1 source) Personal history of traumatic brain injury; Translations: [PERSONAL HX TRAUMATIC BRAIN INJURY] Onset: 06-01-2022 Episodic Other connective tissue disease (4 sources) Lateral epicondylitis of left humerus; Translations: [Lateral epicondylitis, left elbow] 02-06-2024 Episodic Other non-traumatic joint disorders (2 sources) Pain in elbow; Translations: [Pain in left elbow] 02-06-2024 Episodic Past or Other Problems Problem Classification Problem Date Documented Da te Episodic/Chronic Immunizations and screening for infectious disease (2 sources) Contact with and (suspected) exposure to other viral communicable diseases Onset: 03-25-2021 Resolved: 03-25-2021 Episodic Viral infection (2 sources) COVID-19 Onset: 03-25-2021 Resolved: 03-25-2021 Results Test Name Value Interpretation Reference Range Facility No Panel Informationon 02-05 SULAIMAN Martin 02/06/2024 8:18 AM Hand / UE Inj/Asp: L elbow for lateral epicondylitis on 02/06/2024 8:13 AM Indications: diagnostic, pain and therapeutic Details: 22 G needle, lateral approach Medications: 0.5 mL bupivacaine 0.5 %; 40 mg methylPREDNISolone acetate 40 MG/ML Outcome: tolerated well, no immediate complications Injection given by John EL Under direct supervision. Procedure, treatment alternatives, risks and benefits explained, specific risks discussed. Consent was given by the patient. Patient was prepped and draped in the usual sterile fashion. [facility] Coding Summaryon 10-23-2022 Coding Summary HTMLBase 64 PhdghnntKAr9vWg+PGhlYWQ +PX0AOLXnO05fmIZnqI8pK9 NMTElOSywgQVBQTElOSyIgb zFnMT8kqAEnRGKb IC8+UE2nQXSrOysdnNZwy1W 3zHT5S18wqe2pAWtntOB2WB EkPzXeetogv8sgoWy7UZwxW mluOyBt LVDoxE54ILR6yF59Ad77uXR viMDxo3mbvFa1KmPnCWZaWR E4zJfwUBzhz1RtXQRzI93ku DQez6T5 IWGqwBateLToQzWmhMV5lK4 tFJtgkudfj8vncipiZvx1jw 09xQQgf3Y6eDG3E7AyfnP6I GJvbGQg JnrfmSNHoJ7olmmjb5sbucf eFvCzETXzAGb3DPb8QFTfvD nlLxXrAQ79WOX6GIQyjeEzM 2FsLWFs dEzvZmW6e6T1Fz0NQ4TSTsy yZ3VELLGWUWxheAS+PC90cj 90H2ZgUaazFtn5YBIrNZB9d AP2oZ2i TUIfUSlmm9B3sFN6Y4OufjC kvk9ud7nmZTUbHHlqO25phX Dce4V4FGCijNV9UDRbrSqaB iBzaG93 Oyc+IXVsoQxex8BgUgspm5q lq6uceZp2CbgzGFDcdnPvmP quPTQ3v0SjEk1yTLIacWW3k RH6iC1g JzQgHmI8ITxhW538ZjRfzWT cNodxE37qF1RrgXB+PHRyPj p2QVXjuXarFX3dC9OxYNFfa mctbGVm aAkzXO4cGCChfsafIASfaX9 mCQMtL4z2IsOjKtX9MYelU6 YmMMYulkaxOn83cJ7xIoVnI pX5NQbx A1ZkclW5UABbbADsLJejAET 1P19st4G8PUDuYWSgAYV2hT M9zF8vhLvumqmkbEQcpKtli mVydGlj FRceTTyrD660BIPpmKexJsP vZGluZyBEYXRlOiAgMDcvMT cvMjAyMzwvdGQ+BBBbYPO5o WxlPSAn tSDaSYjxOg6mhVfucNxqZB8 rFYCzjmjaKZTplM7iRYNktN CohAabQD4aPBCwcsdaw397F iAxMHB0 XEIsmEHvV6ObjT4uUiHyHBN rFTVcV1NixGZvUJawJ383YP mnQnN8NZSkssDnY7BsOJLzy WduOiB0 z4X5Hu6Ls3UygzchS3YwhVM oToPlSbkmERp8I2IzPhxlqU I+SE58BTMdTM76UXn1OZL7t WxlPSdi TSSiM0PgkI1pEnJlHNFmKGV kOyc+PHRhYmxlIHdpZHRoPS teBBMgVcEogFxqUL9xRw9gS GVyLWNv iYiiaIYjPaVyi1rgCSMiRAw qAD5zmTfuQ6LszKE0WHLpe2 b2Mn27R84bO1BtfFG+PGNvb JA9vJV4 jY8kQsTdNaE7UNrpJ837OnA tlRMyEefae0eyn2ulxKa4Iq P8BGUufeEjvJknLDA0v7LwR t75U01x IHdpZHRoPSIxNSUiIHZhbGl tmz8reC5jZy5+CMUebOF5gZ H1jV9fEyVsYzT5LZddN912O nRvcCIv Qpvyv2tey8kpeOx3JvNuIJQ xwxAxhDskXPH1w9LsRc99J7 AjmWkac9DlGhz4hy01gRWtk 9F7iOL2 Y4WzFCEshdiglFBeyPmtQM0 hVYKdxwhlCYWnzX9qAMJxM9 d0OiMqFsH9TLafO8BfryS1Y GJvbGQg KTJwkTSIeP4guevzj5fdkii jAcXnDAAgDEu1TMs0EGJfpB ulWqVtDBF5MkM6HHM4eTEaq V7giLak bbbbbD5xJtg+KVQ5fMHikDF FZM6aAwsszHN+LTXqELH9nC bpWWkiDZEpvR2oUXAeW7m5E iAwLjA1 XPhvP0DjewV0TLSfcKMnHTW vcTXKmN0nfyuul8apcnpyVr NlBWHwMVt7AJu4CYYfaQttC iBsZWZ0 OjK5WQG3iPDcvB2qvXuedqx pnX5pGna+YlsukHyjQYR6MR s6O6CkDja7QBOugJvrVK5ug GFkZGlu Lm8gkCcodWepZQ4pWGMwdyi fe579UlRlj8vrWMAniVKjYK dwFUW5E26fy7I7BICrJHOuZ UL6oRM4 pJ7rkRzdofmsmWTtyYwjcrU rvOxxLBjzVWueI224FJJnuH jlIeXtNPe0U8KvLpc4NDSti ZioAO8r oLGqYOkwMt4owGkyhOekYO2 kEQVidalbn313GyMym8nqOG DphLUjCCovRDG9P88ii8A4E CMwMDAw EBV6yBP3pT4uuYrenhvleSB mdDsgdmVydGljYWwtYWxpZ2 57TNUtdUbtRwKrvJi1K0NwX dr5SMWl uZzbAV5sjJAzYHbxZu4mzKy xxGbmXW3uAKAbplsmq963Wo Wur5upBBWdzJKnOZloPDD7Q 06tq4B4 YVJdRYFfNHD0oIW8iP8yrSt nbjogbGVmdDsgdmVydGljYW zuURltB984DKGwyWsrFeBwu GllbnQg QNaiKKx7Q4XoUhoeuOY+PC9 3UGOtAJ88mUGshXYgl1ejtT p5JgCsYZWbLDK7jVdgQZsyh 3JkZXIt W49ifSFdn0G2YQLfxGdxpYD hMqAsqOF7lE5fUZumrwsyn3 ogrnmaKcgye2hnib79fV12Z 29sIHdp ZHRoPSIzMCUiIHZhbGlnbj0 ufH3vVi7+UJEynGJ5hNI6bL 4bXDSoAwD9CWleS000VkIhl CIvPjxj p9gvx4qtcJu2NrS9EAEfnmC hoYpsDWN1g0LcQy14X55zNM dpZHRoPSIyMCUiIHZhbGlnb w4kdM5z Ii8+YANjcZF1vLQ7wA9rLeR pKaB4FNedP790YyJkyOKuYf mrU27xT1DekFZ+KLXlAce1H CBzdHls AE3rfHDbAOsnDa0gGET1YcC qVwJrSDjhZ6MxUEPukhslqo ejrZN0ABZqZNBfeB16Lx5yq DogMTBw uXLXoI1cskyyv2invtrmHfC dVUAvCTc0GRx8RTPfrXxxYo KpQNZ7MlG0QRX8aVSszO8ao Glnbjog bY6tE1FtESVojlzsGu13zF5 eAdJdYmD6OKkmIqq+U0tFRU kOQHGGI5YNTaZdIPMIHGT5D 6AgVoy9 OEChpQrjBC3fxKDpGZrtOx7 awEumiQeuUC8oQIVcrazfAG GbpU9wKKFfoIJtwKlxDZ7bS TBpbjtm l262McAzXJB7HMVhwZVnG5S ypQ6qZiLzTHEyYLFjE4ZbeZ KtSNddY020CQjbBtP5ZWMtd wDcY2Rg JINmlGcwIoO0m3T8Hf2uVK8 gVk7aDQewNE57AY45yXNfx7 X5wCJ2K9GdVPGevoefumbqb UP1LQXu FTIbdZ10yTAdOUivAg7jh6B 2s471SYIrXPVaxB14Gt2sjQ yuUTRcjIBUcK1kpnmkg8jha jogIzAw LCOuHAr1ZNa6CNHysLfiEhX mRCH6UjF9WRE4fEUxnU6hvH xdfcembT6cJvn+NDAgWWVhc aT0R8Ru Pdv3JPTolWthZC7pcTXuWPy cQl9jmLzmqNktQT8wOSOcyx bwPEPycH2lYIDgeAVflXzwS I5eGAVg bokvk922NxXlYNS7UCAkaLX cI7BasG8lFtRqQIKaXRNfJ9 LsnLHkDKvcL065SOgeDgU2N HZlcnRp E0XtNEGqfYoqLpC3t2C9Ke5 IKYhSDV34PK10xJZem6N8iL T0Q6QfVNUzuksurwjhrUE6Y DAuMDUw zI48vVHjKIkmFl8qr1G7z06 7LELwXBYtyN49Wp4xqCkyZX QcdXGYfJ3ywmcwg7wkqekqM zAwMDAw MQc8SNw8TQCmtFkkHmFlWXH 4NxF4CMO5hCEkgB4beFpnxh apiM6qWgq+J1X4B2HbKhrii HI+PC90 ILHzHD21mPYrhIWvg3nxgWs 8VvWlWLMsUZR3rNekATqwo1 AyPLDnE13xvCOhf9M7DNXbp GxhcHNl PjRswKN5mG9oKQmbyhppe7u ebdbcQngqh7kjbo70hX99C2 9sIHdpZHRoPSIzMCUiIHZhb Nrplv3k sY8lDs4+ZYWdgQL8mYV2wA3 wEzNrHgC7NItdA919AzAryA AcTqvwr2gna9mpjOf6VaKkT SIgdmFs gGdtYNW1p8BtTe93Q60iXJa pZHRoPSIyMCUiIHZhbGlnbj 0tzJ4xYe5+HW3ay2yahd73z D48dHI+ ZOZoORB5kKxuSAmjGCXmcE3 eTBjkDoS1GGIxVdYjgB15lG VsHZafAp9diHyzdRjfQW1qE TBpbjtm h334TaHjm1itJGHolVLsFKi yVDM3H58vx0B8AWCmTIOoDZ A2mFZ2zM0pbKqmyfsbvPMvx DsgdmVy iBphUUmpRDyzM669PDJrvEt dHzYpyDUiF4uczqPZMT7uPc wvdGQ+PBIlIFW9vUycCVasY TSkwB7y FFVxU2a2EyHdPlG8BKkvN4U gfuU5DAIvpNChSZGtsMRInA 6zqwtpb7zskcwkRyHxLMFbE Ij0OWp8 IRNwzQbpHgXhMJR3DgG4THQ 5sAPngD6umFihjwoayI3hXg c+RklOOjwvdGQ+ODBvDYS4n WxlPSdw QBTztK9pRBUpJ7t1MfEyYhU 1QIjqX7NewuT6IDJtjSViKK XfqAWKzS7yjilyr9apcdpaG zAwMDAw LFb2YTr3WQYkbIqiOoBuWIE 3ZqV0TGH9zUUesU1emGcdpu ntsG2tZbc+TVJOOjwvdGQ+P HRkIHN0 iOeaWXxkGPGxhG5rZIXoJ5t 8QlZfOoQ5KAevA4CxllP6RZ FisQIgWDSfcDVSoG2hbjsbh 2xvcjog HqCoXPSzQSh0SKp3PNDbuWl rNaOiOZO8OyF8WGU0cBOqcR 7jdWfgkptpuL9dEta+UGF5Z SS8MA65 XK69T8PyJhpneWIuhEY+PHR hYmxlIHdpZHRoPScxMDAlJy LyvEccDJ5lEk3rWKUmGARcz GxhcHNl OiB (more content not included)... Normal [facility] .QC SARS-CoV-2 (COVID-19)/Fl u/RSV (GeneXpert)on 10-08-2022 Internal Control Pass Normal [facility] Comment on above: Order Comment: Order ed by Stacey. [[email or web address]] Performed By: #### 4 [id number], [id number] #### [facility] (DEFAULT) [address] [place] [address] COVID/Flu/RSV (GeneXpert)on 10-08-2022 Flu A (GXpert COVFLURSV) Negative Normal [facility] Comment on above: Performed By: #### 4 [id number], [id number] #### [facility] (DEFAULT) [address] [place] [address] Flu B (GXpert COVFLURSV) Negative Normal Negative [facility] Comment on above: Performed By: #### 4 [id number], [id number] #### [facility] (DEFAULT) [address] [place] [address] RSV (GXpert COVFLURSV) Negative Normal Negative [facility] Comment on above: Performed By: #### 4 [id number], [id number] #### [facility] (DEFAULT) [address] [place] [address] SARS-CoV-2 (COVID-19) RNA CHAPARRO+probe Ql (Unsp spec) Negative Normal Negative [facility] Comment on above: Result Comment: Perf ormed by PCR methodology. Performed By: #### 4 [id number], [id number] #### [facility] (DEFAULT) [address] [place] [address] ED Clinical Summaryon 2022 ED Clinical Summary [facility] ? Urgent Care [address] [place] [address] Clinical Summary PERSON INFORMATION Name: EDISON THOMAS Age: 42 Years Sex: MALE : 1980 MRN: Acct#: Visit Reason: Malaise; Throat pain - Adult; UC - Sore Throat; Cough; CHILLS Arrival: 10/08/2022 12:01:05 Discharge: 10/08/2022 15:05:00 LOS: 000 03:04 Check In: 10/08/2022 12:01:05 Checkout: 10/08/2022 15:05:00 [facility] [id number] PCP: LUCIANO DANIELLE PROVIDER INFORMATION Provider Role Assigned Unassigned Arielle DE JESUS, Chelsea Coreas ED Nurse 10/08/2022 13:02:20 Rey [...] Strep Throat, Adult Follow-Up: With: Address: When: LUCIANO DANIELLE [address] [place] [address] Debbie [place], [place] [phone] Business (1) Within 2 to 4 days [...] Acute streptococcal pharyngitis Patient Understands: Yes - Patient/family/caregive r verbalizes understanding of instructions given Comment: Normal [facility] ED Patient Summaryon 023 ED Patient Summary [facility] ? Urgent Care [address] [place] [address] PATIENT DISCHARGE INSTRUCTIONS Patient Information Name: EDISON THOMAS Age: 42 Years Date of : 1980 Reason For Visit: Malaise; Throat pain - Adult; UC - Sore Throat; Cough; CHILLS Arrival Time: 10/08/2022 12:01:05 Primary Care Physician: LUCIANO DANIELLE Attending Physician: Rey Munoz Comment: Patient Education With: Address: When: LUCIANO DANIELLE [address] [place] [phone] Business (1) Within 2 to 4 days [...] these instructions at home: Medicines ? Take apal-mft-svajnvt and prescription medicines only as told by [...] be re (more content not included)... Normal [facility] Strep Aon 10-08-2022 Strep procedure control Pass Normal [facility] Comment on above: Performed By: #### 4 [id number], [id number] #### [facility] (DEFAULT) [address] [place] [address] Streptococcus A Positive Normal Negative [facility] Comment on above: Performed By: #### 4 [id number], [id number] #### [facility] (DEFAULT) [address] [place] [address] Urgent Care Note- Provideron 10-08-2022 Urgent Care Note- Provider Patient: EDISON THOMAS Age: 42 years Sex: MALE : 1980 [...] or illnesses. [place] He supposed to return to work [...] Impression and Plan Diagnosis Acute streptococcal pharyngitis (ICS73-TH J02.0, Discharge, Medical) Plan Condition: Stable. Disposition: Discharged: Time 10/08/2022 14:39:00, to home. Prescriptions: Launch prescriptions Pharmacy: amoxicillin 500 mg oral tablet (Prescribe): 500 mg = 1 tab(s), PO, TID, for 10 day(s), 30 tab(s), 0 Refill(s). (more content not included)... Normal [facility] [place] 023 Urgent Care Record [facility] ? Urgent Care [address] [place] [address] PATIENT DISCHARGE INSTRUCTIONS Patient Information Name: EDISON THOMAS Age: 42 Years Date of : 1980 Reason For Visit: Malaise; Throat pain - Adult; UC - Sore Throat; Cough; CHILLS Arrival Time: 10/08/2022 12:01:05 Primary Care Physician: LUCIAON DANIELLE Attending Physician: Rey Munoz Comment: Visit Diagnosis: Diagnoses This Visit Acute streptococcal pharyngitis (J02.0) Cough ([id number]) Malaise ([id number]) Throat pain - Adult ([id number]) UC - Sore Throat ([id number]) If you received any narcotics, sedation, or [...] sign any legal documents With: Address: When: LUCIANO DANIELLE [address] [place], [place] [phone] Business (1) Within 2 to 4 days [...] and treatment you received today in the [facility] were for an urgent problem and are not intended as complete care. It is important for you to follow up with a doctor, nurse practitioner, or physician?s assistant dean for ongoing care. If your symptoms become [...] so we can reach you if necessary. [facility] has provided you with a complete list of medications post discharge. 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 Any specific questions regarding your chronic medications and dosages should be discussed with your primary care physician(s) and/or pharmacist. New Medications [facility], [address] [place] [phone], [phone] amoxicillin (amoxicillin 500 mg oral tablet) 1 [...] names to (more content not included)... Normal [facility] MRI BRAIN [facility] CONon 023 MRI BRAIN WO W CON EXAMINATION: MRI BRA IN WO W CON HISTORY: Dizziness and giddiness Traumatic brain disorder, [...] are clear. The flow voids of the [place] of [place] are visualized, implying that the [...] LEIGH ANDRES Date: 2022-05-30 13:13 [facility] Positive [facility] Other Vital Signs Date Time Vital Sign Value Performing Clinician Facility 03-25-2021 13:00-0500 Body height 177.8 cm Joy Buenrostro Other [facility] Other 03-25-2021 13:00-0500 Body mass index (BMI) [Ratio] 28.69 kg/m2 Joy Buenrostro Other [facility] Other 03-25-2021 13:00-0500 Body temperature 98.3 [degF] Joy Buenrostro Other [facility] Other 03-25-2021 13:00-0500 Body weight 90.72 kg Joy Buenrostro Other [facility] Other 03-25-2021 13:00-0500 SaO2% (BldA) [Mass fraction] 95 % Joy Buenrostro Other [facility] Other Encounters Encounter Date Encounter Type Care Provider Facility Start: 04-22-2024 End: 04-22-2024 Amy flowsfidelina Danielle MD Work Phone: [facility] Start: 04-22-2024 End: 04-22-2024 Bamboo flowsheet Luciano Danielle MD Work Phone: [facility] Start: 02-06-2024 End: 02-06-2024 Bamboo flowsheet Cathi Gomez PA Work Phone: [facility] Start: 02-06-2024 End: 02-06-2024 Bamboo flowsheet Cathi Gomez PA Work Phone: [facility] Start: 02-06-2024 End: 02-06-2024 Office outpatient visit 25 minutes Cathi HILARIO Work Phone: [facility] Comment on above: Left elbow pain (Mary brittany Dx); Lateral epicondylitis of left elbow Start: 02-06-2024 End: 02-06-2024 ambulatory CATHI GOMEZ Not Available Start: 10-03-2023 End: 10-03-2023 ambulatory CATHI GOMEZ Not Available Start: 06-14-2023 End: 06-15-2023 ambulatory LUCIANO DANIELLE Facility:[facility] Start: 04-10-2023 End: 04-10-2023 ambulatory VALENTÍN PARISI Not Available Start: 03-05-2023 End: 03-05-2023 ambulatory CATHI GOMEZ Not Available Start: 10-08-2022 End: 10-08-2022 ambulatory LUCIANO DANIELLE Facility:[facility] Start: 05-29-2022 End: 05-30-[address] LUCIANO DANIELLE Facility:[facility] Start: 05-26-2022 End: 05-27-[address] LUCIANO DANIELLE Facility:[facility] Start: 03-25-2021 (URG) Urgent Care Visit Joy coreas [facility] Start: 03-25-2021 End: 03-25-2021 ambulatory Joy Buenrostro Other [facility] Other Procedures Date Procedure Procedure Detail Performing Clinician Start: 02-06-2024 Injection single ten don origin/insertion Cathi Gomez PA Work Phone: Plan of Treatment Date Care Activity Detail Author Start: 04-22-2024 End: 04-22-2024 Patient encounter procedure 04/22/2024 9:45 AM EST Office Visit [facility] [address] [place] [address] Luciano Danielle MD [address] [place] [id number] Arrived [facility] Comment on above: Arrived Start: 02-06-2024 End: 02-06-2024 Patient encounter procedure [facility] Comment on above: Left elbow pain (Mary brittany Dx) Start: 12-09-2023 Influenza vaccination Influenza Vacc ine (#1) [facility] Payers Date Payer Category Payer [facility] BCBS [id number] 2023 Unknown [id number] 1980 Unknown [id number] 2..[id number]. 593 1980 Unknown [id number] 2..[id number]. 593 1980 Unknown [id number] 2..840.1.032390.3.579.2. 718 1980 Unknown [id number] 2..840.1.515948.3.579.2. 718 1980 Unknown [id number] 2.840.1.431686.3.579.2. 1259 1980 Unknown [id number] [id number]. 1259 1980 Unknown [id number] 2.16.840.1.422201.3.579.2. 1259 1980 Unknown [id number] [id number]. 1259 1957 Unknown [id number] Social History Date Type Detail Facility Unknown if ever smoked [facility] Other Start: 02-05-2024 End: 02-06-2024 Sex Assigned At [facility] Start: 02-09-2023 Tobacco smoking status WIIS Never smoked tobacco [facility] Start: 02-09-2023 Tobacco use and exposure Smokeless tobacco non-user [facility] Start: 10-03-2023 End: 02-06-2024 Alcoholic beverage intake Current drinker of alcohol (finding) [facility] Start: 02-05-2024 End: 02-06-2024 History of Social function [facility] How often do you nee d to have someone help you when you read instructions, pamphlets, or other written material from your doctor or pharmacy [SILS] Never [facility] Do you belong to any clubs or organizations such as hoahaoism groups, unions, fraternal or athletic groups, or school groups? Yes [facility] Are you now , , , , never or living with a partner? [facility] How hard is it for y ou to pay for the very basics like food, housing, medical care, and heating Not very hard [facility] Do you feel stress - tense, restless, nervous, or anxious, or unable to sleep at night because your mind is troubled all the time - these days [OSQ] Not at all [facility] (I/We) worried wheth er (my/our) food would run out before (I/we) got money to buy more. Never true [facility] In the past 12 month s, was there a time when you were not able to pay the mortgage or rent on time? No [facility] Start: 02-09-2023 Alcohol Comment caffeine intake: 1-2 cups per day. [facility] Start: 1980 Sex assigned at Not on file [facility] History of Present illness Narrative 02-06-2024 SULAIMAN Martin - 02/06/2024 8:00 AM EDT Note Date & Type Note Facility 02-06-2024 History of Presen t illness Narrative Associated Order(s): Hand / UE Inj/Asp: L elbow Post-Procedure Diagnose(s): Lateral epicondylitis of left elbow Images from the original note were not included. HISTORY OF PRESENT ILLNESS: EST PT Edison Thomas is an 44 y.o. @ male. EST PT RECHECK LT ELBOW PAIN- S/P CORTISONE INJ 10/03/23; GREAT RELIEF UNTIL ~1MO AGO- PT REQUESTING A REPEAT CORTISONE INJ TODAY XRAY LT ELBOW 02/09/23 CHANGE CORTISONE INJ 03/05/23, 10/03/23 TENNIS ELBOW BRACE; CAUSED INCREASE PAIN PT STATES HIS JOB DUTIES HAVE CHANGED AND SHOULD HELP WITH ELBOW- PAIN GENERALLY LATERAL ELBOW- SOME OCCASIONAL MEDIAL ELBOW PAIN- GOOD ROM- MINIMAL DISCOMFORT AT REST- INCREASE PAIN WITH CERTAIN MOVEMENT/ROM- +IBUPROFEN 800MG PRN - DENIES N/T- PT IS RT HAND [facility] [place]: PT NOTICED PAIN SHORTLY AFTER WORKING OUT ~12/29/22 ALLERGIES: No Known Allergies HOME MEDICATIONS: Current Outpatient Medications Medication Instructions ibuprofen 800 mg, Oral, 3 times daily PHYSICAL EXAM: Elbow Musculoskeletal Exam Inspection Left Left elbow inspection is normal. Ecchymosis: none Swelling: lateral Deformity: none Palpation Left Crepitus (radiocapitellar): none Tenderness: present Medial/flexor origin: none Lateral/extensor origin: moderate Posterior-olecranon: none MCL: none LCL: none Range of Motion Left Left elbow range of motion is normal. Active Extension: 0 Passive Extension: 0 Active Flexion: 140 Passive Flexion: 140 Active Pronation: 90 Passive Pronation: 90 Active Supination: 90 Passive Supination: 90 Strength Left Left elbow strength is normal. Extension: 5/5. Extension is affected by pain. Flexion: 5/5. Pronation: 5/5. Supination: 5/5. Supination is affected by pain. Finger abduction: 5/5. Client Services Associate strength: 5/5. Neurovascular Left Left elbow nerve sensation is normal. Radial pulse: normal Capillary refill: <3 sec Ulnar nerve sensory distribution: normal Median nerve sensory distribution: normal Radial nerve sensory distribution: normal Special Tests Left Neurological Signs Pain with resisted pronation: negative Pain with resisted supination: positive Pain with resisted long finger: positive Epicondylitis Signs Pain with resisted wrist flexion: negative Pain with resisted wrist extension: positive Special Signs Pain with terminal extension: positive General Constitutional: appears stated age Lymphadenopathy: none Vitals: There is no height or weight on file to calculate BMI. Tobacco Use: Low Risk (02/06/2024) Patient History Smoking Tobacco Use: Never Smokeless Tobacco Use: Never Passive Exposure: Not on file Alcohol Use: Patient Declined (02/05/2024) AUDIT-C Frequency of Alcohol Consumption: Patient declined Average Number of Drinks: Patient declined Frequency of Binge Drinking: Patient declined IMAGING: Hand / UE Inj/Asp: L elbow for lateral epicondylitis on 02/06/2024 8:13 AM Indications: diagnostic, pain and therapeutic Details: 22 G needle, lateral approach Medications: 0.5 mL bupivacaine 0.5 %; 40 mg methylPREDNISolone acetate 40 MG/ML Outcome: tolerated well, no immediate complications Injection given by John EL Under direct supervision. Procedure, treatment alternatives, risks and benefits explained, specific risks discussed. Consent was given by the patient. Patient was prepped and draped in the usual sterile fashion. Orders Placed This Encounter Procedures Hand / UE Inj/Asp: L elbow This order was created via procedure documentation ASSESSMENT: ICD-10-CM 1. Left elbow pain M25.522 2. Lateral epicondylitis of left elbow M77.12 Hand / UE Inj/Asp: L elbow PLAN: Pt recently started new employment.. feels his elbow will be able to rest more.. pt very pleased with relief from injection, requesting injection today. Would recommend surgery if not improving given this is his 3rd injection and near;y 1 year of symptoms.. pt starting new employment would like to keep this as treatment of last resort. Questions answered in laymen terms at the bedside. The diagnosis, home exercise plan and any ongoing restrictions/ recommendations reviewed. If unable to be reached in office, I recommend evaluation at nearest Emergency Room if any symptoms worsened or new symptoms develop for requiring urgent evaluation. documented in this encounter [facility] Clinical Note 10-08-2022 Note Date & Type [...] these instructions at home: Medicines ? 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 Make sure that all people in your [...] that is a (more content not included)... [facility] Evaluation note 03-25-2021 Note Date & Type Note Facility 03-25-2021 [...] Patient care instructions given in writting by [facility] document. [facility] Other Evaluation note Note Date & Type Note Facility Evaluation note Diagnosis Left elbow pain- Primary Pain in joint, upper arm Lateral epicondylitis of left elbow documented in this encounter [facility] Summary Purpose Family History No Family History Records FoundNo Family History Records FoundNo Family History Records Found Advance Directives No Advanced Directives Records FoundNo Advanced Directives Records FoundNo Advanced Directives Records Found Additional Source Comments REASON FOR VISIT (unrecogniz ed section and content) Reason Comments Pain (unrecognized sect ion and content) No Status Records FoundNo Status Records FoundNo Status Records Found INFORMATION SOURCE (unrecogn ized section and content) DATE CREATED AUTHOR 08/15/2022 [facility] DATE CREATED AUTHOR AUTHOR'S ORGANIZ ATION 06/15/2023 [facility] DATE CREATED AUTHOR AUTHOR'S ORGANIZ ATION 02/07/2024 [facility] Care Teams (unrecognized sec tion and content) [employer] Relationship Specialty Start Date End Date Luciano Danielle MD [address] [place] [phone] PCP - General Family Medicine 10/03/23 [employer] Relationship Specialty Start Date End Date Luciano Danielle MD [address] [place] [phone] PCP - General Family Medicine 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 [employer] provides no warranty or guarantee of the accuracy or completeness of information in this document.
--- NOTE | 2024-04-22 17:33 | XR_ITS ---
[facility] [place] [id number] Patient Name: EDISON IQBAL MRN: [id number] date: 1980 Sex: M Assigned Patient Location: [facility] Current Patient Location: Accession/Order Number: [id number] Exam Date: 04/22/2024 17:26 Report Date: 04/23/2024 07:21 At the request of: NICOLE DANIELLE Procedure: XR lumbar spine 2-3V EXAMINATION: XR lumbar spine 2-3V HISTORY: Chronic bilateral low back pain w/o sciatica,M54.50 COMPARISON: No relevant comparison available. FINDINGS: BONES: Normal. No significant spondylosis, scoliosis, fracture, or visible bony lesion. DISC SPACES: Normal. No significant disc height narrowing, subluxation, or endplate abnormality. PARASPINOUS: Negative. No paraspinous abnormality is seen. OTHER: Negative. XR/XR lumbar spine 2-3V IMPRESSION: No acute abnormality Electronically authenticated by: ROSANNA TOLENTINO Date: 04/23/2024 07:21
--- NOTE | 2024-04-22 17:33 | XR_ITS ---
[place] [id number] Patient Name: EDISON IQBAL MRN: [id number] date: 1980 Sex: M Assigned Patient Location: RAD Current Patient Location: [facility] Accession/Order Number: [id number] Exam Date: 04/22/2024 17:26 Report Date: 04/23/2024 07:22 At the request of: NICOLE DANIELLE Procedure: XR hip LT min 2V PROCEDURE: XR hip LT min 2V COMPARISON: None. HISTORY: Hip impingement syndrome left, M25.852 FINDINGS: BONES:No fracture, acute abnormality, or significant arthropathy. Small calcifications along the superior lateral margin of the acetabulum could represent degenerative change SOFT TISSUES:Negative. No visible soft tissue swelling. EFFUSION:None visible. OTHER: Negative. XR/XR hip LT min 2V IMPRESSION: No acute abnormality Electronically authenticated by: ROSANNA TOLENTINO Date: 04/23/2024 07:22
== END 2024-04-22 17:16 | disposition home or self-care (01) ==
PROVIDERS: PCP Family Medicine; Visit Provider Family Medicine
DX: M25.852 Other specified joint disorders, left hip (principal); M54.50 Low back pain, unspecified; G89.29 Other chronic pain
CPT/HCPCS: 72100; 73502